=== PATIENT | female | born 1980 | race Caucasian/White ===

== ENCOUNTER 2018-02-23 07:07 | Emergency (ER) | payer OTHER ==
--- OUTSIDE RECORDS SUMMARY | 2018-02-23 07:09 | XMS REPORT | Summary of Care ---
:1980 Author Name KERRY WASHINGTON M.D. Address Unavailable Unavailable , Care Team Providers Name Role Phone Maria Fernanda Keenan R.N. Unavailable Unavailable KERRY WASHINGTON M.D. Unavailable Unavailable PADMINI VICTOR WIKERRY Unavailable Unavailable Unavailable Unavailable Unavailable Functional Status Name Dates Details Functional status health issues are not documented Status: Name Dates Details Cognitive status health issues are not documented Status: Problems Name Dates Details Premenstrual dysphoric disorder (625.4, F32.81) Status: Active Bipolar 2 disorder (296.89, F31.81) Status: Active Alcohol use disorder (305.00, F10.99) Status: Active Tetrahydrocannabinol (THC) use disorder, moderate, dependence (304.30, F12.20) Status: Active Medications Name Dates Details [place] Carbonate 150 MG Oral Capsule TAKE 3 CAPSULE TWICE DAILY Quantity: 180 Refills: 1 KERRY WASHINGTON M.D. Start : 15-Feb-2017 Active Gabapentin 100 MG Oral Capsule TAKE 2 CAPSULES 3 TIMES DAILY. Quantity: 180 Refills: 1 KERRY WASHINGTON M.D. Start : 15-Feb-2017 Active TraZODone HCl - 100 MG Oral Tablet TAKE 1/2 TO 2 TABLETS BY MOUTH EVERY NIGHT AT BEDTIME NEEDED FOR INSOMNIA Quantity: 60 Refills: 1 KERRY WASHINGTON M.D. Start : 15-Feb-2017 Active Venlafaxine HCl ER 37.5 MG Oral Capsule Extended Release 24 Hour TAKE 1 CAPSULE DAILY Quantity: 30 Refills: 1 KERRY WASHINGTON M.D. Start : 14-Jun-2017 Active Allergies and Adverse Reactions Name Dates Details No Known Drug Allergies (Allergy) Status: Active Procedures Procedure Dates Details Procedures not documented Immunization Name Dates Details Immunizations not documented Social History Name Dates Details Unknown if ever smoked Vital Signs Date Test Result Details No Known Vitals to report Results Date Description Value Details Results not documented Plan of Care Name Dates Details Planned Observations Planned Goals not documented Instructions Name Dates Details Instructions not documented Encounters Appointment; KERRY WASHINGTON M.D. On: 15-Feb-2017 15:30 Encounter Diagnosis: Problem not documented Appointment; KERRY WASHINGTON M.D. On: 16-Mar-2017 11:30 Encounter Diagnosis: Problem not documented Appointment; KERRY WASHINGTON M.D. On: 14-Jun-2017 16:00 Encounter Diagnosis: Problem not documented Appointment; KERRY WASHINGTON M.D. On: 03-Oct-2017 16:00 Encounter Diagnosis: Problem not documented
[2018-02-23] MEDS ORDERED: LORazepam 2 MG/ML VIAL ONE (07:28)
[2018-02-23] MEDS ORDERED: NA CHLORIDE 0.9% 1,000 ML ONE (07:28)
[2018-02-23 07:35] LABS: Absolute Monocytes 0.5 K/uL (0.1-1.3); Absolute Neutrophil 5.3 K/uL (1.8-8.0); Basophils % 0.8 % (0-1.3); Hematocrit 42.8 % (36.0-45.0); Lymphocytes % 25.3 % (15.3-44.8); MCH 33.5 pg (27.0-35.0); MCV 96.5 fL (80-100); MPV 7.5 fL (7.6-11.3); Monocytes % 6.3 % (3.3-12.3); RBC Red Blood Cell Count 4.43 M/uL (3.86-4.86)
[2018-02-23 07:42] LABS: Protime INR 1.22
[2018-02-23] MEDS ORDERED: ONDANSETRON 4 MG/2 ML VIAL ONE (08:49)
[2018-02-23 09:12] LABS: ALT/SGPT 29 U/L (12-78); Albumin 3.3 g/dL (3.4-5.0); Alkaline Phosphatase 40 U/L (45-117); BUN Blood Urea Nitrogen 8 mg/dL (7-18); Bicarbonate 19 mmol/L (21-32); Bilirubin Total 0.4 mg/dL (0.2-1.0); Glucose Level 112 mg/dL (74-106); Protein, Total 7.3 g/dL (6.4-8.2); Sodium Level 139 mmol/L (136-145)
[2018-02-23 09:20] LABS: AST/SGOT 25 U/L (15-37)
[2018-02-23 09:21] LABS: Bilirubin Direct < 0.1 mg/dL (0-0.2); Potassium 4.3 mmol/L (3.5-5.1)
[2018-02-23 10:13] LABS: Barbiturates NEGATIVE (NEGATIVE); Benzodiazepines NEGATIVE (NEGATIVE); Cocaine NEGATIVE (NEGATIVE); METHAMPHETAM NEGATIVE (NEGATIVE); Methadone NEGATIVE (NEGATIVE); Opiates NEGATIVE (NEGATIVE); Phencyclidine NEGATIVE (NEGATIVE); THC Cannibis POSITIVE (NEGATIVE)
[2018-02-23 10:17] LABS: Alcohol Serum/Plasma 30 mg/dL (<3)
[2018-02-23] MEDS ORDERED: ENALAPRILAT 1.25 MG/ML VIAL IV ONE (10:56)
--- NOTE | 2018-02-23 11:05 | RAD REPORT ---
EXAM DESCRIPTION: CT - Head Brain Wo Cont - 02/23/2018 10:59 am CLINICAL HISTORY: Transient alteration of awareness COMPARISON: None. TECHNIQUE: Axial 5 mm thick images of the head were obtained without IV contrast. All CT scans are performed using dose optimization technique as appropriate and may include automated exposure control or mA/KV adjustment according to patient size. FINDINGS: No intracranial hemorrhage, mass, edema or shift of mid-line structures. No acute infarcti on changes seen. No abnormal extra-axial fluid collections. Ventricles are normal. Mastoid air cells and visualized portions of the paranasal sinuses are clear. No acute bony findings. There is a benign 10 mm partially calcified mass in the scalp soft tissues la teral right frontal bone. This is not regarded as significant. IMPRESSION: Negative non-contrast CT head examination for acute or significant finding.
[2018-02-23 11:39] LABS: Urine Blood TRACE (NEG); Urine Glucose NEGATIVE (NEG); Urine Protein NEGATIVE (NEG); Urine Specific Gravity 1.025 (1.005-1.030)
--- NOTE | 2018-02-23 13:29 | ER ---
Nurse's Notes [facility] Name: Kaitlin Maynard Age: 37 yrs Sex: Female : 1980 Arrival Date: 02/23/2018 Time: 07:08 Bed 3 Private MD: Diagnosis: Cannabis abuse with intoxication, unspecified;Major depressive disorder, recurrent Presentation: 02/23 07:08 Presenting complaint: EMS states: pt has hx of daily ETOH use, family reported pt has iw been on a binge since last Monday, family found 12 empty cans of 4 Lokos, pt c/o pain all over and nausea/vomiting. Transition of care: patient was not received from another setting of care. Onset of symptoms was February 23, 2018. Risk Assessment: Do you want to hurt yourself or someone else? Patient reports no desire to harm self or others. Initial Sepsis Screen: Does the patient meet any 2 criteria? No. Patient's initial sepsis screen is negative. Does the patient have a suspected source of infection? No. Patient's initial sepsis screen is negative. Care prior to arrival: Medication(s) given: zofran 4 mg, IV initiated. 20 GA, in the right hand. 07:08 Method Of Arrival: EMS: [facility] iw 07:08 Acuity: MK 3 iw Historical: - Allergies: 07:11 NKA; iw - Home Meds: 07:11 None [Active]; iw - PMHx: 07:11 Hypertension; iw - PSHx: 07:11 ankle sx; iw - Social history:: The patient lives at home. - Ebola Screening: : Patient negative for fever greater than or equal to 101.5 degrees Fahrenheit, and additional compatible Ebola Virus Disease symptoms Patient denies exposure to infectious person Patient denies travel to an Ebola-affected area in the 21 days before illness onset No symptoms or risks identified at this time. Screenin:54 Abuse screen: Denies threats or abuse. Nutritional screening: No deficits noted. tw2 Tuberculosis screening: No symptoms or risk factors identified. Fall Risk None identified. Assessment: 07:31 General: Appears in no apparent distress. uncomfortable, unkempt, Behavior is anxious, jl7 crying, fussy, Smells of alcohol, Pt is moaning, attempting to get out of bed, states "Please help me, I need something to drink. I'm going to throw up." Informed pt she will receive IV fluids and nausea medication and she is NPO. Pt states "I'm not thirsty, I need something to drink." Helped pt back into the bed, explained she is to stay in bed for safety. Pt unable to verbalize understanding at this time.. Pain: Complains of pain in all over Pain does not radiate. Neuro: Level of Consciousness is awake, Oriented to person, place, time. Cardiovascular: Patient's skin is warm and dry. Respiratory: Airway is patent Respiratory effort is even, unlabored, Respiratory pattern is regular, symmetrical. GI: Abdomen is round non-distended, Reports nausea. : No signs and/or symptoms were reported regarding the genitourinary system. EENT: No signs and/or symptoms were reported regarding the EENT system. Derm: Skin is pink, warm \\T\\ dry. Musculoskeletal: No signs and/or symptoms reported regarding the musculoskeletal system. 08:30 Reassessment: Patient and/or family updated on plan of care and expected duration. Pain jl7 level reassessed. Patient is alert, oriented x 3, equal unlabored respirations, skin warm/dry/pink. Pt denies suicidal ideation at this time. ERP notified. 09:00 Reassessment: Awaiting lab results, optical laboratory mechanic reports results are being flipped soon. jl7 ERP notified of BP, no new orders received at this time. 09:45 Reassessment: electronics technician apprentice reports difficulty with lab machines, labs will be finished jl7 resulting soon. 10:20 Reassessment: Awaiting lipase result, electronics technician apprentice reports "We had to find the blood, it jl7 will be resulted soon.". 10:35 Reassessment: Pt reports "I feel better now." EPR notified and notified of BP, see MAR jl7 for orders.. 11:30 Reassessment: No changes from previously documented assessment. Patient and/or family jl7 updated on plan of care and expected duration. Pain level reassessed. Patient is alert, oriented x 3, equal unlabored respirations, skin warm/dry/pink. 12:30 Reassessment: Patient and/or family updated on plan of care and expected duration. Pain jl7 level reassessed. Patient is alert, oriented x 3, equal unlabored respirations, skin warm/dry/pink. 13:30 Reassessment: Patient and/or family updated on plan of care and expected duration. Pain jl7 level reassessed. Patient is alert, oriented x 3, equal unlabored respirations, skin warm/dry/pink. Psych: 07:00 Subjective: Patient's mood is sad, irritable, Delusions are denied, Hallucinations are jl7 denied Having thoughts of suicide. Denies suicidal plan. Objective: Patient is cooperative, challenging, irritable, restless, Speech is slurred, Affect is blunted. Interventions: Removed personal items and placed in bag. Suicide Risk Assessment: Sad Person Scale: Sex of patient: Female: Score 0 points. Age of patient: Score 0 point if patient falls outside of specified age parameters. Depression: Score 1 point if signs of depression are present. Previous Attempt: Score 1 point if patient has previously attempted suicide. Substance Abuse: Score 1 point if patient abuses alcohol or drugs. Rational Thinking: Score 1 point if patient is lacking rational thinking. Social Support: Score 0 if social support is present/available. Organized Plan: Score 0 if patient did not have an organized plan in place. Relationship: Score 1 point if patient is , , , or for a single male Chronic Sickness: Score 0 point if patient does not have a chronic illness, debilitating, or severe disorder. TOTAL POINTS: If total points are 5-6, proposed clinical action is to strongly consider hospitalization, depending upon confidence in the follow-up arrangement. Implement suicide precautions. Safety Checks: Personal items have been removed. Door is open. No visitors are present at this time. Patient uses daily. Vital Signs: 07:11 BP 158 / 82; Pulse 96; Resp 16; Temp 98.7(O); Pulse Ox 100% on R/A; Weight 81.65 kg; iw Height 5 ft. 4 in. (162.56 cm); Pain 8/10; 08:54 BP 161 / 117; Pulse 94; Resp 17; Pulse Ox 98% on R/A; tw2 09:44 BP 167 / 120; Pulse 89; Resp 16; Pulse Ox 97% on R/A; jl7 10:35 BP 173 / 116; Pulse 84; Resp 14; Pulse Ox 98% ; jl7 11:45 BP 135 / 85; Pulse 88; Resp 17; Pulse Ox 97% on R/A; jb1 14:28 BP 137 / 84; Pulse 89; Resp 16; Pulse Ox 97% ; jl7 07:11 Body Mass Index 30.90 (81.65 kg, 162.56 cm) ED Course: 07:00 Patient has correct armband on for positive identification. Bed in low position. Call jl7 light in reach. Side rails up X2. 07:00 Pulse ox on. NIBP on. Warm blanket given. jl7 07:08 Patient arrived in ED. iw 07:11 Triage completed. iw 07:11 Arm band placed on. iw 07:13 Kadeem Navarrete MD is Attending Physician. gs 07:15 Safety Checks: Personal items have been removed. The door is open or patient has been jl7 placed in a hallway bed/chair. There are no family/friend visitors at this time Sitter present at this time. 07:25 Maintain EMS IV. Dressing intact. Good blood return noted. Site clean \\T\\ dry. Gauge \\T\\ iw site: 20 right hand. 07:30 Lydia Sousa RN is Primary Nurse. jl7 07:30 Safety Checks: Personal items have been removed. The door is open or patient has been jl7 placed in a hallway bed/chair. There are no family/friend visitors at this time Sitter present at this time. 07:30 Inserted saline lock: 20 gauge in left forearm, using aseptic technique. Blood jl7 collected. 07:45 Safety Checks: Personal items have been removed. The door is open or patient has been jl7 placed in a hallway bed/chair. There are no family/friend visitors at this time Sitter present at this time. 08:00 Safety Checks: Personal items have been removed. The door is open or patient has been jl7 placed in a hallway bed/chair. There are no family/friend visitors at this time Sitter present at this time. 08:15 Safety Checks: Personal items have been removed. The door is open or patient has been jl7 placed in a hallway bed/chair. There are no family/friend visitors at this time Sitter present at this time. 08:18 EKG done, by surfacing technician. reviewed by Kadeem Navarrete MD. at1 08:30 Safety Checks: Personal items have been removed. The door is open or patient has been jl7 placed in a hallway bed/chair. There are no family/friend visitors at this time Sitter present at this time. 08:30 Assisted to bedside commode. jl7 08:45 Safety Checks: Personal items have been removed. The door is open or patient has been jl7 placed in a hallway bed/chair. There are no family/friend visitors at this time Sitter present at this time. 09:00 Safety Checks: Personal items have been removed. The door is open or patient has been jl7 placed in a hallway bed/chair. There are no family/friend visitors at this time Sitter present at this time. 09:15 Safety Checks: Personal items have been removed. The door is open or patient has been jl7 placed in a hallway bed/chair. There are no family/friend visitors at this time Sitter present at this time. 10:00 Assisted to bedside commode. jl7 10:[address] vr 10:59 CT Head Brain wo Cont In Process Unspecified. EDMS 14:28 No provider procedures requiring assistance completed. IV discontinued, intact, jl7 bleeding controlled, No redness/swelling at site. Pressure dressing applied. Administered Medications: 07:30 Drug: NS 0.9% 1000 ml Route: IV; Rate: 1 bolus; Site: left forearm; gs 08:30 Follow up: IV Status: Completed infusion; IV Intake: 1000ml jl7 07:31 Drug: Ativan 1 mg Route: IVP; Site: left forearm; iw 07:45 Follow up: Response: No adverse reaction; Marked relief of symptoms jl7 08:49 Drug: Zofran 4 mg Route: IVP; Site: right hand; tw2 09:00 Follow up: Response: No adverse reaction; Nausea is decreased jl7 11:16 Drug: Enalaprilat 0.625 mg Route: IV; Rate: calculated rate; Site: right wrist; jl7 11:21 Follow up: IV Status: Completed infusion jl7 11:42 Follow up: Response: Blood pressure is lowered jl7 Intake: 08:30 IV: 1000ml; Total: 1000ml. jl7 Outcome: 13:29 Discharge ordered by . gs 14:28 Discharged to home ambulatory. jl7 14:28 Condition: stable 14:28 Discharge instructions given to patient, Instructed on discharge instructions, follow up and referral plans. Demonstrated understanding of instructions, follow-up care. 14:29 Patient left the ED. jl7 Signatures: Dispatcher [employer] EDVance Ruiz jb1 Kylie Springer, RN RN Mely Carvajal Amanda, supervisor dental laboratory EKG Tat1 Thi Vann, LULU RN tw2 Lydia Sousa, LULU RN jl7 Kadeem Navarrete MD MD gs Corrections: (The following items were deleted from the chart) 09:00 Reassessment: Awaiting lab results, optical laboratory mechanic reports results are being flipped jlFern soon. jl7 11 10:35 Reassessment: Pt reports "I feel better now. EPR notified. jl7 jl7
--- NOTE | 2018-02-23 13:29 | EDPHYS ---
Physician Documentation [facility] Name: Kaitlin Maynard Age: 37 yrs Sex: Female : 1980 Arrival Date: 02/23/2018 Time: 07:08 Bed 3 Private MD: ED Physician Kadeem Navarrete HPI: 02/23 13:25 This 37 yrs old Female presents to ER via EMS with complaints of ETOH Abuse. gs 13:25 The patient presents to the emergency department with depression, a history of gs substance abuse. Onset: The symptoms/episode began/occurred this morning. Past psychiatric history: Prior diagnosis: depression. Associated signs and symptoms: Pertinent positives; depression, desperation, Pertinent negatives: suicide ideation. Severity of symptoms: At their worst the symptoms were moderate in the emergency department the symptoms are unchanged. The patient has experienced similar episodes in the past, a few times. The patient has not recently seen a physician. Historical: - Allergies: 07:11 NKA; iw - Home Meds: 07:11 None [Active]; iw - PMHx: 07:11 Hypertension; iw - PSHx: 07:11 ankle sx; iw - Social history:: The patient lives at home. - Ebola Screening: : Patient negative for fever greater than or equal to 101.5 degrees Fahrenheit, and additional compatible Ebola Virus Disease symptoms Patient denies exposure to infectious person Patient denies travel to an Ebola-affected area in the 21 days before illness onset No symptoms or risks identified at this time. ROS: 13:25 All other systems are negative. gs Exam: 13:25 Head/Face: Normocephalic, atraumatic. Eyes: Pupils equal round and reactive to light, gs extra-ocular motions intact. Lids and lashes normal. Conjunctiva and sclera are non-icteric and not injected. Cornea within normal limits. Periorbital areas with no swelling, redness, or edema. ENT: Nares patent. No nasal discharge, no septal abnormalities noted. Tympanic membranes are normal and external auditory canals are clear. Oropharynx with no redness, swelling, or masses, exudates, or evidence of obstruction, uvula midline. Mucous membranes moist. Neck: Trachea midline, no thyromegaly or masses palpated, and no cervical lymphadenopathy. Supple, full range of motion without nuchal rigidity, or vertebral point tenderness. No Meningismus. Chest/axilla: Normal chest wall appearance and motion. Nontender with no deformity. No lesions are appreciated. Cardiovascular: Regular rate and rhythm with a normal S1 and S2. No gallops, murmurs, or rubs. Normal PMI, no JVD. No pulse deficits. Respiratory: Lungs have equal breath sounds bilaterally, clear to auscultation and percussion. No rales, rhonchi or wheezes noted. No increased work of breathing, no retractions or nasal flaring. Abdomen/GI: Soft, non-tender, with normal bowel sounds. No distension or tympany. No guarding or rebound. No evidence of tenderness throughout. Back: No spinal tenderness. No costovertebral tenderness. Full range of motion. Skin: Warm, dry with normal turgor. Normal color with no rashes, no lesions, and no evidence of cellulitis. MS/ Extremity: Pulses equal, no cyanosis. Neurovascular intact. Full, normal range of motion. 13:25 Constitutional: The patient appears alert, awake. 13:25 Neuro: Orientation: to person, place \T\ time. Mentation: slow to respond, confused, Cranial nerves: CN II- XII are normal as tested, Cerebellar function: normal finger to nose testing, Motor: moves all fours, Sensation: no acute changes. 13:25 Psych: Behavior/mood is depressed, Affect is calm, Oriented to person, place, time, Patient having thoughts of suicide. Patient having thoughts of homicide. no, Delusions/hallucinations are not present. 14:00 ECG was reviewed by the Attending Physician. Vital Signs: 07:11 BP 158 / 82; Pulse 96; Resp 16; Temp 98.7(O); Pulse Ox 100% on R/A; Weight 81.65 kg; iw Height 5 ft. 4 in. (162.56 cm); Pain 8/10; 08:54 BP 161 / 117; Pulse 94; Resp 17; Pulse Ox 98% on R/A; tw2 09:44 BP 167 / 120; Pulse 89; Resp 16; Pulse Ox 97% on R/A; jl7 10:35 BP 173 / 116; Pulse 84; Resp 14; Pulse Ox 98% ; jl7 11:45 BP 135 / 85; Pulse 88; Resp 17; Pulse Ox 97% on R/A; jb1 14:28 BP 137 / 84; Pulse 89; Resp 16; Pulse Ox 97% ; jl7 07:11 Body Mass Index 30.90 (81.65 kg, 162.56 cm) iw MDM: 07:18 Patient medically screened. 13:25 Differential diagnosis: drug withdrawal. acute psychotic break, depression. Data gs reviewed: vital signs, nurses notes. Response to treatment: the patient's symptoms have markedly improved after treatment, the patient's symptoms have resolved after treatment, and as a result, I will discharge patient. 02/23 07:19 Order name: Acetaminophen; Complete Time: 11:06 02/23 07:19 Order name: Basic Metabolic Panel; Complete Time: 11:06 02/23 07:19 Order name: CBC with Diff; Complete Time: 09:52 02/23 07:19 Order name: ETOH Level; Complete Time: 11:06 02/23 07:19 Order name: Hepatic Function; Complete Time: 11:06 02/23 07:19 Order name: PT-INR; Complete Time: 09:52 02/23 07:19 Order name: Salicylate; Complete Time: 09:52 02/23 07:19 Order name: Urine Drug Screen; Complete Time: 11:06 02/23 08:05 Order name: Lipase; Complete Time: 11:06 02/23 09:22 Order name: Urine Dipstick--Ancillary (enter results); Complete Time: 11:59 ag 02/23 09:22 Order name: Urine --Ancillary (enter results); Complete Time: 11:59 ag 02/23 10:47 Order name: CT Head Brain wo Cont; Complete Time: 11:06 02/23 07:19 Order name: EKG; Complete Time: 07:20 02/23 07:19 Order name: EKG - Nurse/Tech; Complete Time: 08:56 02/23 07:19 Order name: IV Saline Lock; Complete Time: 07:30 02/23 07:19 Order name: Labs collected and sent; Complete Time: 07:30 02/23 07:19 Order name: Urine Dipstick-Ancillary (obtain specimen); Complete Time: 09:27 gs EC:00 Rate is 84 beats/min. Rhythm is regular. QRS interval is normal. QT interval is normal. gs T waves are Normal. No ST changes noted. Clinical impression: Normal ECG. Administered Medications: 07:30 Drug: NS 0.9% 1000 ml Route: IV; Rate: 1 bolus; Site: left forearm; 08:30 Follow up: IV Status: Completed infusion; IV Intake: 1000ml jl7 07:31 Drug: Ativan 1 mg Route: IVP; Site: left forearm; 07:45 Follow up: Response: No adverse reaction; Marked relief of symptoms jl7 08:49 Drug: Zofran 4 mg Route: IVP; Site: right hand; 2 09:00 Follow up: Response: No adverse reaction; Nausea is decreased jl7 11:16 Drug: Enalaprilat 0.625 mg Route: IV; Rate: calculated rate; Site: right wrist; jl7 11:21 Follow up: IV Status: Completed infusion jl7 11:42 Follow up: Response: Blood pressure is lowered jl7 Disposition: 02/23/18 13:29 Discharged to Home. Impression: Cannabis abuse with intoxication, unspecified, Major depressive disorder, recurrent. - Condition is Stable. - Discharge Instructions: Cannabis Use Disorder, Major Depressive Disorder. - Medication Reconciliation Form, Thank You Letter, Antibiotic Education, Prescription Opioid Use form. - Follow up: Private Physician; When: 2 - 3 days; Reason: Re-evaluation by your physician. Signatures: Dispatcher [employer] EDKylie العراقي RN RN [facility], Thi RN LULU [facility] Lydia Sousa RN RN jl7 Kadeem Navarrete MD MD Corrections: (The following items were deleted from the chart) 14:29 13:29 02/23/2018 13:29 Discharged to Home. Impression: Cannabis abuse with jl7 intoxication, unspecified; Major depressive disorder, recurrent. Condition is Stable. Forms are Medication Reconciliation Form, Thank You Letter, Antibiotic Education, Prescription Opioid Use. Follow up: Private Physician; When: 2 - 3 days; Reason: Re-evaluation by your physician. gs
--- NOTE | 2018-02-23 17:15 | EKG ---
Test Date: 2018-02-23 Test Time: 08:12:20 Database Reporting Consultant: BASIL MEASUREMENT RESULTS: Intervals: Rate: 84 DC: 142 QRSD: 88 QT: 382 QTc: 451 Joice: P: 40 DC: 142 QRS: 64 T: 42 INTERPRETIVE STATEMENTS: Normal sinus rhythm Normal ECG Compared to ECG 06/08/2015 07:37:15 No significant changes Electronically Signed On 02-23-18 17:11:19 CDT by Yair Navarro
== END 2018-02-23 14:29 | disposition home or self-care (01) ==
LOC: ER 07:07
DX: F33.9 Major depressive disorder, recurrent, unspecified (principal); I10 Essential (primary) hypertension
CPT/HCPCS: 36415; 70450; 80048; 80076; 80307; 80320; 80329; 81003; 81025; 83690; 85025; 85610; 93005; 99285; J2405; J7030

== ENCOUNTER 2018-08-05 18:45 | Emergency (ER) | payer OTHER, SELFPAY ==
[2018-08-05] MEDS ORDERED: MULTIVITAMINS 10 ML VIAL (INJ) IV ONE (19:39)
[2018-08-05] MEDS ORDERED: THIAMINE 200 MG/2 ML INJ ONE (19:39)
[2018-08-05] MEDS ORDERED: NA CHLORIDE 0.9% 1,000 ML ONE (19:39)
[2018-08-05] MEDS ORDERED: LORazepam 2 MG/ML VIAL ONE (19:39)
[2018-08-05] MEDS ORDERED: FOLIC ACID 5 MG/ML VIAL ONE (19:40)
[2018-08-05 20:14] LABS: Absolute Lymphocytes (CBC) 1.2 K/uL (0.7-4.9); Absolute Monocytes 0.4 K/uL (0.1-1.3); Absolute Neutrophil 4.6 K/uL (1.8-8.0); Basophils % 0.1 % (0-1.3); Eosinophils % 0.2 % (0-4.4); Hematocrit 47.8 % (36.0-45.0); Lymphocytes % 18.7 % (15.3-44.8); MPV 8.5 fL (7.6-11.3); RBC Red Blood Cell Count 4.84 M/uL (3.86-4.86)
[2018-08-05 20:45] LABS: ALT/SGPT 62 U/L (12-78); AST/SGOT 59 U/L (15-37); Albumin 4.4 g/dL (3.4-5.0); Alkaline Phosphatase 46 U/L (45-117); BUN Blood Urea Nitrogen 14 mg/dL (7-18); Bicarbonate 26 mmol/L (21-32); Bilirubin Direct 0.2 mg/dL (0-0.2); Bilirubin Total 0.7 mg/dL (0.2-1.0); Glucose Level 116 mg/dL (74-106); Protein, Total 8.3 g/dL (6.4-8.2); Sodium Level 136 mmol/L (136-145)
[2018-08-05 20:49] LABS: Potassium 2.7 mmol/L (3.5-5.1)
[2018-08-05] MEDS ORDERED: KCL 20 MEQ/100 mL IVPB 20 MEQ/100 ML BAG IV ONE (21:20)
[2018-08-05] MEDS ORDERED: POTASSIUM 25 MEQ EFFERV TAB ONE (21:20)
[2018-08-05 21:29] LABS: Protime INR 0.95
[2018-08-05 22:16] LABS: Barbiturates NEGATIVE (NEGATIVE); Benzodiazepines NEGATIVE (NEGATIVE); Cocaine NEGATIVE (NEGATIVE); METHAMPHETAM NEGATIVE (NEGATIVE); Methadone NEGATIVE (NEGATIVE); Opiates NEGATIVE (NEGATIVE); Phencyclidine NEGATIVE (NEGATIVE); THC Cannibis POSITIVE (NEGATIVE)
[2018-08-05 22:57] LABS: Urine Blood 1+ (NEG); Urine Glucose NEGATIVE (NEG); Urine Protein 1+ (NEG)
--- NOTE | 2018-08-06 00:47 | EDPHYS ---
Physician Documentation [facility] Name: Kaitlin Maynard Age: 38 yrs Sex: Female : 1980 Arrival Date: 08/05/2018 Time: 18:47 Bed 7 Private MD: ED Physician Agustin Desai HPI: 08/05 20:19 This 38 yrs old Female presents to ER via EMS with complaints of Probable snw Seizure. 20:19 The patient presents after having a single isolated seizure, that lasted an unknown snw period of time. Character of seizure(s): Loss of consciousness: the patient experienced loss of consciousness, brief, Motor activity: the motor activity is unknown, Incontinence: none, Apnea: the patient did not experience apnea, Circulation: the patient did not experience evidence of pulse disturbance, Eye movements: are unknown. Seizure onset: today. Context: the seizure(s) was witnessed, by co-worker(s), occurred at work, occurred while the patient was lying down, Contributing factors: no ETOH. Seizure Hx: Cause: alcohol abuse history, Seizure medications: none. EMS care: IV fluids, supplemental oxygen. Current symptoms: Currently, the patient is not experiencing any symptoms. The patient has experienced similar episodes in the past. The patient has not recently seen a physician. EKG MONITOR TECH: 19:23 LMP N/A - Irregular menses ed1 Historical: - Allergies: 18:51 NKA; hb - PMHx: 18:51 Hypertension; Seizures; hb - PSHx: 18:51 ankle sx; hb - Immunization history:: Adult Immunizations up to date. - Social history:: Smoking status: Patient/guardian denies using tobacco. - Ebola Screening: : No symptoms or risks identified at this time. ROS: 20:18 Constitutional: Negative for fever, chills, and weight loss, shaky, generally feeling snw ill Eyes: Negative for injury, pain, redness, and discharge, ENT: Negative for injury, pain, and discharge, Neck: Negative for injury, pain, and swelling, Cardiovascular: Negative for chest pain, palpitations, and edema, Respiratory: Negative for shortness of breath, cough, wheezing, and pleuritic chest pain, Abdomen/GI: Negative for abdominal pain, nausea, vomiting, and constipation, + diarrhea Back: Negative for injury and pain, : Negative for injury, bleeding, discharge, and swelling, MS/Extremity: Negative for injury and deformity, Skin: Negative for injury, rash, and discoloration, Neuro: Negative for headache, weakness, numbness, tingling, and seizure. Exam: 20:12 Constitutional: This is a well developed, well nourished patient who is awake, alert, snw and in no acute distress. Head/Face: Normocephalic, atraumatic. 20:12 ENT: Nares patent. No nasal discharge, no septal abnormalities noted. Tympanic membranes are normal and external auditory canals are clear. Oropharynx with no redness, swelling, or masses, exudates, or evidence of obstruction, uvula midline. Mucous membranes moist. Neck: Trachea midline, no thyromegaly or masses palpated, and no cervical lymphadenopathy. Supple, full range of motion without nuchal rigidity, or vertebral point tenderness. No Meningismus. Chest/axilla: Normal chest wall appearance and motion. Nontender with no deformity. No lesions are appreciated. 20:12 Respiratory: Lungs have equal breath sounds bilaterally, clear to auscultation and percussion. No rales, rhonchi or wheezes noted. No increased work of breathing, no retractions or nasal flaring. Abdomen/GI: Soft, non-tender, with normal bowel sounds. No distension or tympany. No guarding or rebound. No evidence of tenderness throughout. Back: No spinal tenderness. No costovertebral tenderness. Full range of motion. Skin: Warm, dry with normal turgor. Normal color with no rashes, no lesions, and no evidence of cellulitis. MS/ Extremity: Pulses equal, no cyanosis. Neurovascular intact. Full, normal range of motion. Neuro: Awake and alert, GCS 15, oriented to person, place, time, and situation. Cranial nerves II-XII grossly intact. Motor strength 5/5 in all extremities. Sensory grossly intact. Cerebellar exam normal. Normal gait. 20:12 Eyes: Periorbital structures: appear normal, Pupils: constricted, bilaterally, Extraocular movements: no acute changes, Conjunctiva: normal, Corneas: are normal. 20:12 Cardiovascular: Rate: tachycardic, Heart sounds: normal, Edema: is not appreciated. 20:12 Psych: Behavior/mood is pleasant, cooperative, pt states she is an alcoholic and has not had a drink in 4 days. Vital Signs: 18:48 BP 148 / 92; Pulse 112; Resp 16; Temp 99.1; Pulse Ox 100% on R/A; Pain 0/10; hb 19:54 BP 126 / 101; Pulse 107; Resp 22; Pulse Ox 94% on R/A; Pain 0/10; lp1 21:16 BP 128 / 92; Pulse 90; Resp 16; Pulse Ox 100% on R/A; Pain 0/10; ed1 21:55 BP 110 / 88; Pulse 94; Resp 25; Pulse Ox 96% on R/A; Pain 0/10; ed1 22:50 BP 117 / 81; Pulse 94; Resp 18; Pulse Ox 100% on R/A; Pain 0/10; ed1 23:23 BP 120 / 84; Pulse 80; Resp 20; Pulse Ox 96% on R/A; lp1 23:39 BP 122 / 84; Pulse 90; Resp 17; Pulse Ox 98% on R/A; Pain 0/10; ed1 08/06 00:20 BP 114 / 79; Pulse 83; Resp 18; Pulse Ox 94% on R/A; Pain 0/10; ed1 Ramya Coma Score: 08/05 19:23 Eye Response: spontaneous(4). Verbal Response: oriented(5). Motor Response: obeys ed1 commands(6). Total: 15. MDM: 18:52 Patient medically screened. snw 08/06 00:50 Data reviewed: vital signs, nurses notes. Data interpreted: Pulse oximetry: on room air snw is 98 %. Interpretation: normal. Counseling: I had a detailed discussion with the patient and/or guardian regarding: the historical points, exam findings, and any diagnostic results supporting the discharge/admit diagnosis, lab results, radiology results, the need for outpatient follow up, to return to the emergency department if symptoms worsen or persist or if there are any questions or concerns that arise at home. Response to treatment: the patient's symptoms have markedly improved after treatment, the patient's symptoms have resolved after treatment, and as a result, I will discharge patient, encourage counseling and insist patient follow up with PCP. Special discussion: Based on the history and exam findings, there is no indication for further emergent testing or inpatient evaluation. I discussed with the patient/guardian the need to see the primary care provider for further evaluation of the symptoms. Patient states she wishes to abstain from ETOH, encouraged to call PCP for assistance tomorrow. Pt states she has support with her Son and her Parents.. 08/05 18:53 Order name: Acetaminophen; Complete Time: 20:55 08/05 18:53 Order name: Basic Metabolic Panel; Complete Time: 20:55 08/05 18:53 Order name: CBC with Diff; Complete Time: 20:26 08/05 18:53 Order name: ETOH Level; Complete Time: 21:14 08/05 18:53 Order name: Hepatic Function; Complete Time: 20:55 08/05 18:53 Order name: PT-INR; Complete Time: 21:44 08/05 18:53 Order name: Ptt, Activated; Complete Time: 21:44 08/05 18:53 Order name: Salicylate; Complete Time: 20:55 08/05 18:53 Order name: Urine Drug Screen; Complete Time: 23:01 08/05 22:03 Order name: Urine Dipstick--Ancillary (enter results); Complete Time: 23:08/05 22:03 Order name: Urine --Ancillary (enter results); Complete Time: 23:01 08/05 18:53 Order name: Urine Test (obtain specimen); Complete Time: 19:52 08/05 18:53 Order name: EKG; Complete Time: 18:53 08/05 18:53 Order name: EKG - Nurse/Tech; Complete Time: 19:29 08/05 18:53 Order name: IV Saline Lock; Complete Time: 19:52 08/05 18:53 Order name: Labs collected and sent; Complete Time: 19:52 08/05 18:53 Order name: Urine Dipstick-Ancillary (obtain specimen); Complete Time: 21:57 snw Administered Medications: 08/05 19:51 Drug: Ativan 2 mg Route: IVP; Site: right forearm; lp1 20:50 Follow up: Response: No adverse reaction ed1 19:51 Drug: Banana Bag - (NS 0.9% 1000 ml, foLIC Acid 1 mg, Thiamine 100 mg, Multivitamin 1 lp1 amp) Route: IV; Rate: calculated rate; Site: right forearm; 08/06 01:11 Follow up: Response: No adverse reaction; IV Status: Completed infusion; IV Intake: ed1 1000ml 08/05 21:18 Drug: Potassium Effervescent Tablet 50 mEq Route: PO; ed1 22:00 Follow up: Response: No adverse reaction ed1 21:18 Drug: Potassium Chloride 20 mEq Route: IV; Rate: calculated rate; Site: right forearm; ed1 23:22 Follow up: IV Status: Completed infusion lp1 Disposition: 08/06/18 00:46 Discharged to Home. Impression: Alcohol abuse, Alcohol withdrawal seizure, Hypokalemia. - Condition is Stable. - Discharge Instructions: Alcohol Withdrawal, Alcohol Use Disorder, Potassium Content of Foods, Nonepileptic Seizures, Addiction and the Family, Alcohol Abuse and Nutrition, Hypokalemia. - Prescriptions for chlordiazepoxide HCl 25 mg Oral capsule - take 1 capsule by ORAL route 3 times per day; 15 capsule. Vitamin 27- 0.8 mg Oral Tablet - take 1 tablet by ORAL route once daily; 60 tablet. - Work release form, Medication Reconciliation Form, Thank You Letter, Antibiotic Education, Prescription Opioid Use form. - Follow up: Private Physician; When: 2 - 3 days; Reason: Recheck today's complaints, Continuance of care, Re-evaluation by your physician. Follow up: Emergency Department; When: As needed; Reason: Worsening of condition. Addendum: 08/07/2018 19:58 Co-signature as Attending Physician, Agustin Desai MD. r n Signatures: Dispatcher [employer] EDNJ Radha Graham, DIGITAL MEDIA PLANNER-C DIGITAL MEDIA PLANNER-Csnw Agustin Desai MD MD rn Riggs, Erika RN RN ed1 Natalia Rebolledo RN RN lp1 Nataly Quiñones, LULU RN Corrections: (The following items were deleted from the chart) 08/06 01:11 00:46 08/06/2018 00:46 Discharged to Home. Impression: Alcohol abuse; Alcohol ed1 withdrawal seizure; Hypokalemia. Condition is Stable. Forms are Medication Reconciliation Form, Thank You Letter, Antibiotic Education, Prescription Opioid Use. Follow up: Private Physician; When: 2 - 3 days; Reason: Recheck today's complaints, Continuance of care, Re-evaluation by your physician. Follow up: Emergency Department; When: As needed; Reason: Worsening of condition. snw
--- NOTE | 2018-08-06 00:47 | ER ---
Nurse's Notes [facility] Name: Kaitlin Maynard Age: 38 yrs Sex: Female : 1980 Arrival Date: 08/05/2018 Time: 18:47 Bed 7 Private MD: Diagnosis: Alcohol abuse;Alcohol withdrawal seizure;Hypokalemia Presentation: 08/05 18:48 Presenting complaint: EMS states: Found by boss unresponsive on floor, then had a hb witnessed seizure that lasted approx 3 minutes. 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 Hx of seizures. Transition of care: patient was not received from another setting of care. Onset of symptoms was August 05, 2018. Risk Assessment: Do you want to hurt yourself or someone else? Patient reports no desire to harm self or others. Care prior to arrival: None. 18:48 Method Of Arrival: EMS: [facility] hb 18:48 Acuity: MK 3 hb 19:23 Initial Sepsis Screen: Does the patient meet any 2 criteria? No. Patient's initial ed1 sepsis screen is negative. Does the patient have a suspected source of infection? No. Patient's initial sepsis screen is negative. 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 - Social history:: Smoking status: Patient/guardian denies using tobacco. - Ebola Screening: : No symptoms or risks identified at this time. Screenin:23 Abuse screen: Denies threats or abuse. Denies injuries from another. Nutritional ed1 screening: No deficits noted. Tuberculosis screening: No symptoms or risk factors identified. Fall Risk No fall in past 12 months (0 pts). Secondary diagnosis (15 points) seizures, IV access (20 points). Ambulatory Aid- None/Bed Rest/Nurse Assist (0 pts). Gait- Normal/Bed Rest/Wheelchair (0 pts) Mental Status- Oriented to own ability (0 pts). Total Greenwood Fall Scale indicates Low Risk Score (25-44 pts). Fall prevention measures have been instituted. Side Rails Up X 2 Frequent Obs/Assesments occuring As available Patient and Family Educated on Fall Prevention Program and strategies. Assessment: 19:23 General: Appears in no apparent distress. Behavior is drowsy. Pain: Denies pain. Neuro: ed1 Level of Consciousness is awake, alert, obeys commands, Oriented to person, place, time, situation, Denies weakness blurred vision dizziness, headache Seizure activity reported prior to arrival. Cardiovascular: Denies chest pain, Heart tones S1 S2 present. Respiratory: Airway is patent Respiratory effort is even, unlabored, Respiratory pattern is regular, symmetrical, Breath sounds are clear bilaterally. Denies cough, shortness of breath. GI: No signs and/or symptoms were reported involving the gastrointestinal system. : No signs and/or symptoms were reported regarding the genitourinary system. EENT: No signs and/or symptoms were reported regarding the EENT system. Derm: Skin is intact, is healthy with good turgor, Skin is dry, Skin is normal, Skin temperature is warm. Musculoskeletal: Circulation, motion, and sensation intact. Range of motion: intact in all extremities. 19:54 Reassessment: Patient appears in no apparent distress at this time. Patient and/or lp1 family updated on plan of care and expected duration. Pain level reassessed. Patient is alert, oriented x 3, equal unlabored respirations, skin warm/dry/pink. No seizure activity noted. Pt taken to bathroom via wheelchair. Unable to provide urine sample at this time. 21:16 Reassessment: Patient appears in no apparent distress at this time. Patient and/or ed1 family updated on plan of care and expected duration. Pain level reassessed. Patient is alert, oriented x 3, equal unlabored respirations, skin warm/dry/pink. No seizure activity noted Patient denies pain at this time. 21:55 Reassessment: Patient appears in no apparent distress at this time. Patient and/or ed1 family updated on plan of care and expected duration. Pain level reassessed. Patient is alert, oriented x 3, equal unlabored respirations, skin warm/dry/pink. No seizure activity noted at this time Patient denies pain at this time. 22:50 Reassessment: Patient appears in no apparent distress at this time. No changes from ed1 previously documented assessment. Patient and/or family updated on plan of care and expected duration. Pain level reassessed. Patient is alert, oriented x 3, equal unlabored respirations, skin warm/dry/pink. No seizure activity noted Patient denies pain at this time. 23:39 Reassessment: Patient appears in no apparent distress at this time. No changes from ed1 previously documented assessment. Patient and/or family updated on plan of care and expected duration. Pain level reassessed. Patient is alert, oriented x 3, equal unlabored respirations, skin warm/dry/pink. No seizure activity noted Patient denies pain at this time. 08/06 00:20 Reassessment: Patient appears in no apparent distress at this time. No changes from ed1 previously documented assessment. Patient and/or family updated on plan of care and expected duration. Pain level reassessed. Patient is alert, oriented x 3, equal unlabored respirations, skin warm/dry/pink. Patient denies pain at this time. Vital Signs: 08/05 18:48 BP 148 / 92; Pulse 112; Resp 16; Temp 99.1; Pulse Ox 100% on R/A; Pain 0/10; hb 19:54 BP 126 / 101; Pulse 107; Resp 22; Pulse Ox 94% on R/A; Pain 0/10; lp1 21:16 BP 128 / 92; Pulse 90; Resp 16; Pulse Ox 100% on R/A; Pain 0/10; ed1 21:55 BP 110 / 88; Pulse 94; Resp 25; Pulse Ox 96% on R/A; Pain 0/10; ed1 22:50 BP 117 / 81; Pulse 94; Resp 18; Pulse Ox 100% on R/A; Pain 0/10; ed1 23:23 BP 120 / 84; Pulse 80; Resp 20; Pulse Ox 96% on R/A; lp1 23:39 BP 122 / 84; Pulse 90; Resp 17; Pulse Ox 98% on R/A; Pain 0/10; ed1 08/06 00:20 BP 114 / 79; Pulse 83; Resp 18; Pulse Ox 94% on R/A; Pain 0/10; ed1 Ramya Coma Score: 08/05 19:23 Eye Response: spontaneous(4). Verbal Response: oriented(5). Motor Response: obeys ed1 commands(6). Total: 15. ED Course: 18:47 Patient arrived in ED. sg 18:48 Arm band placed on. sg 18:51 Triage completed. hb 18:52 Radha Graham FNP-C is PHCP. snw 18:52 Agustin Desai MD is Attending Physician. snw 19:22 Bibiana Brush, LULU is Primary Nurse. ed1 19:23 Patient has correct armband on for positive identification. Placed in gown. Bed in low ed1 position. Call light in reach. Side rails up X2. Seizure precautions initiated. engine monitor on. Pulse ox on. NIBP on. 19:28 EKG done, by ED staff, reviewed by Radha CORTES. lp1 19:40 Inserted saline lock: 20 gauge in right forearm, using aseptic technique. Blood lp1 collected. 20:48 Notified Nurse Practitioner and/or Physician Community Liaison of a critical lab result(s), fc potassium of 2.7. 23:40 Resting quietly. Awaiting disposition. ed1 08/06 00:20 Resting quietly. Awaiting disposition. ed1 01:09 No provider procedures requiring assistance completed. IV discontinued, intact, ed1 bleeding controlled, No redness/swelling at site. Pressure dressing applied. Administered Medications: 08/05 19:51 Drug: Ativan 2 mg Route: IVP; Site: right forearm; lp1 20:50 Follow up: Response: No adverse reaction ed1 19:51 Drug: Banana Bag - (NS 0.9% 1000 ml, foLIC Acid 1 mg, Thiamine 100 mg, Multivitamin 1 lp1 amp) Route: IV; Rate: calculated rate; Site: right forearm; 08/06 01:11 Follow up: Response: No adverse reaction; IV Status: Completed infusion; IV Intake: ed1 1000ml 08/05 21:18 Drug: Potassium Effervescent Tablet 50 mEq Route: PO; ed1 22:00 Follow up: Response: No adverse reaction ed1 21:18 Drug: Potassium Chloride 20 mEq Route: IV; Rate: calculated rate; Site: right forearm; ed1 23:22 Follow up: IV Status: Completed infusion lp1 Intake: 08/06 01:11 IV: 1000ml; Total: 1000ml. ed1 Outcome: 00:46 Discharge ordered by . snw 01:09 Discharged to home ambulatory, with family. ed1 01:09 Condition: good 01:09 Discharge instructions given to patient, Instructed on discharge instructions, follow up and referral plans. medication usage, Demonstrated understanding of instructions, follow-up care, medications, Prescriptions given X 2. 01:11 Patient left the ED. ed1 Signatures: Chi Pichardo, RN RN Radha Werner, NEPHROLOGY NURSE-C NEPHROLOGY NURSE-Csnw Betty Pineda RN RN fc Riggs, Erika, RN RN ed1 Natalia Rebolledo RN RN lp1 Nataly Quiñones RN RN hb
--- NOTE | 2018-08-06 07:58 | EKG ---
Test Date: 2018-08-05 Test Time: 19:24:16 [facility]n [facility]: [facility] MEASUREMENT RESULTS: Intervals: Rate: 98 ND: 152 QRSD: 88 QT: 372 QTc: 474 [place]: P: 37 ND: 152 QRS: 51 T: 26 INTERPRETIVE STATEMENTS: Normal sinus rhythm Possible Left atrial enlargement T wave abnormality, consider anterior ischemia Abnormal ECG Compared to ECG 02/23/2018 08:12:20 T-wave abnormality now present Possible ischemia now present Electronically Signed On 08-06-18 07:53:15 TECHNICAL SALES ADVISOR by Yair Navarro
== END 2018-08-06 01:11 | disposition home or self-care (01) ==
LOC: ER 18:45
DX: F10.230 Alcohol dependence with withdrawal, uncomplicated (principal); I10 Essential (primary) hypertension; E87.6 Hypokalemia
CPT/HCPCS: 36415; 80048; 80076; 80307; 80320; 80329; 81003; 81025; 85025; 85610; 85730; 93005; 96365; 96366; 96375; 99285; J3411; J7030